=== PATIENT | male | born 1940 | race Caucasian/White ===

== ENCOUNTER → 2017-09-13 14:11 | Outpatient (CLI) | payer MEDICARE, SELFPAY | PROVIDERS: Family Provider Family Medicine; PCP Family Medicine; Visit Provider Family Medicine | DX: N39.0 Urinary tract infection, site not specified (principal) | CPT/HCPCS: 87086; 87088 ==

== ENCOUNTER → 2018-01-24 12:08 | Outpatient (CLI) | payer MEDICARE, SELFPAY | PROVIDERS: Family Provider Family Medicine; PCP Family Medicine; Visit Provider Nurse Practitioner Adult Health | DX: N39.0 Urinary tract infection, site not specified (principal) | CPT/HCPCS: 87077; 87086; 87088; 87186 ==

== ENCOUNTER → 2018-10-06 | Outpatient (CLI) | payer MEDICARE, SELFPAY | END | disposition home or self-care (01) | PROVIDERS: Family Provider Family Medicine; PCP Family Medicine; Referring Provider Family Medicine; Visit Provider Family Medicine | DX: N39.0 Urinary tract infection, site not specified (principal); R19.7 Diarrhea, unspecified | CPT/HCPCS: 87086; 87088 ==

== ENCOUNTER 2018-12-29 05:54 | Day surgery (SDC) | payer MEDICARE, SELFPAY ==
[2018-12-29 06:16] VITALS: BP 156/71; PULSE 67; RESP 16; TEMP 36.7; O2SAT 100; BMI 28.5
[2018-12-29] MEDS: Lactated Ringers 1,000 ML 100 ML IV (06:42)
--- NOTE | 2018-12-29 07:24 | DCINST_ITS ---
Discharge Diet: Light diet - advance as tolerated Discharge Activity: Return to Normal Activity Call your doctor if you observe: Fever of 101 or Higher Allergies/Adverse Reactions: Allergies No Known Allergies Allergy (Verified 12/22/18 12:50) Medications to take at Discharge Lisinopril [Zestril] 10 mg PO DAILY 07/28/16 Ciprofloxacin [Cipro] 500 mg PO BID #10 tab 12/29/18 The following prescriptions were given: Ciprofloxacin [Cipro] 500 mg PO BID #10 tab Prescription Printed Primary Care Physician: Richie Olivarez MD [Primary Care Provider] - Test Results: Test results from this visit will be discussed in further detail at your follow- up appointment, if applicable. Please Follow Up With: Quique Harman MD When: in 2 weeks, please call to make an appointment.
[2018-12-29] MEDS: Cefazolin 2 GM in 0.9% Normal Saline 100 ML IV (07:26)
[2018-12-29 08:05] VITALS: BP 145/69; BP 156/71; PULSE 75; RESP 16; TEMP 36.4; O2SAT 100
--- NOTE | 2018-12-29 08:07 | PCM.OPRPT ---
Report of Operation Date of Procedure: 12/29/18 Pre-Operative Diagnosis: Urethral stricture and urinary retention Post-Operative Diagnosis: The same Surgery/Procedure Performed:: Cystoscopy, retrograde urethrogram, dilation of urethral stricture in the anterior urethra. Placement of Yu catheter. Description of Surgical Findings:: 78-year-old male with a history of a an anterior urethral stricture and hypospadias had a repair long time ago has been having dribbling overflow incontinence for a long time now presents the office had a very tight distal stricture was not able to dilate in the office therefore recommend taken to surgery to do a dilation place a catheter and then discussed the options of long-term management. 71-year-old male taken back to the operating room at the smooth induction of anesthesia, the penis and testicles are prepped and draped in usual sterile fashion, I dilated meatus, this allowed to have the tip of the Gemma syringe into the penis. We then injected in a retrograde fashion along the urethra to do a urethrogram along the penis interpreted the fluoroscopic images, and could see that he had a nice open urethra and nice open membranous and bulbar urethra all the way to the prostate with no obstruction or stricture. I then dilated the meatal stricture in the anterior stricture with sounds up to 26 Taiwanese I then went into the urethra could see the area of the stricture in the anterior urethra the bulbar urethra is normal normal the pendulous urethra was normal prostate was nonobstructive the bladder was very distended and drained a significant amount of urine from bladder has an atonic nonfunctioning distended bladder. After evaluating the situation I think his best options could be self intermittent catheterization for now we will leave an 18 Taiwanese catheter in the left heel and then will get the catheter out and the teach him how to do self intermittent catheterization to empty his bladder on a routine basis this would be the best option long-term and will keep his bladder empty and keep the stricture open and to keep them dry and out of diapers. He will go home with a Yu catheter today with some antibiotics and see him in about a week to get the catheter out. Type of Anesthesia:: General Drains: yu. - Admit VTE Documentation VTE Present on Admission: No VTE Mechan Device Prophylaxis: SCD's
[2018-12-29 08:15] VITALS: BP 127/64; BP 156/71; PULSE 70; RESP 16; O2SAT 99
[2018-12-29 08:30] VITALS: BP 120/62; BP 156/71; PULSE 68; RESP 16; O2SAT 100
[2018-12-29 08:45] VITALS: BP 132/77; BP 156/71; PULSE 68; RESP 16; TEMP 36.5; O2SAT 100
[2018-12-29 09:30] VITALS: BP 156/71; BP 171/72; PULSE 60; RESP 18; TEMP 36.2; O2SAT 100
--- NOTE | 2019-01-03 15:20 | PCM.HP.STD ---
History of Present Illness Date of Admission: 01/03/19 Chief Complaint: Patient has a history of hypospadias repair has urethral scar tissues today when taken to surgery for dilation of the scar tissue evaluation of the prostate bladder and urethra. The patient is a 78 year old M [] Past Medical History Allergies No Known Allergies Allergy (Verified 12/22/18 12:50) Home Medications: Ambulatory Orders Medication Instructions Recorded Lisinopril [Zestril] 10 mg PO DAILY 07/28/16 Ciprofloxacin [Cipro] 500 mg PO BID #10 tab 12/29/18 Surgical History: no surgical history Smoking Status: Former smoker Tobacco Use: Non-smoker VTE Information - Inpt Only VTE Present on Admission: No VTE Mechan Device Prophylaxis: SCD's - Physical Exam General: Alert, Oriented x3, Cooperative HEENT: Atraumatic, PERRLA, EOMI, Normocephalic Neck: Supple, No JVD, Negative Carotid Bruits Lungs: Clear to auscultation, Normal air movement Cardiovascular: Regular rate, No murmurs Abdomen: Bowel Sounds Present, Soft, Non Tender Extremities: No edema, Capillary Refill Less than 3 Seconds Skin: No rashes, No breakdown Musculoskeletal: No Tenderness to Palpation of Joints or Extremities Neurological: Cranial nerves II-XII grossly intact Psych/Mental Status: Normal Affect, Appropriate Vital Signs Temp Pulse Resp BP Pulse Ox 97.2 F L 60 18 171/72 H 100 12/29/18 09:30 12/29/18 09:30 12/29/18 09:30 12/29/18 09:30 12/29/18 09:30 Oxygen Delivery Method Room Air Weight: 102 kg Body Mass Index (BMI) 28.5 Assessment/Plan Plan for cystoscopy dilation of the urethra and placement of Kelley catheter evaluation of the urethra and the bladder and prostate long-term management.
== END 2018-12-29 09:42 | disposition home or self-care (01) ==
LOC: SDC 05:54 → AC 05:56
PROVIDERS: Family Provider Family Medicine; PCP Family Medicine; Referring Provider Urology; Visit Provider Urology
PROC: 0T7D8ZZ Dilation of Urethra, Via Natural or Artificial Opening Endoscopic (ICD-10-PCS; CPT 52281; principal; 2018-12-29 07:20)
DX: N35.919 Unspecified urethral stricture, male, unspecified site (principal); Q54.8 Other hypospadias; R01.1 Cardiac murmur, unspecified; I10 Essential (primary) hypertension; G25.81 Restless legs syndrome; Z87.891 Personal history of nicotine dependence
CPT/HCPCS: 52281; 76000; J7120; J2405